=== PATIENT | male | born 1950 | race Caucasian/White ===

== ENCOUNTER 2017-01-18 14:17 | Emergency (ER) | payer MEDICARE, OTHER ==
[~2017-01-18] VITALS: Ht 175.3 cm; Wt 86.2 kg
[2017-01-18 14:27] VITALS: BP 121/71
[2017-01-18] MEDS ORDERED: TDAP [DIPH/PERTUSSIS/TET] 0.5 ML VIAL IM ONE ×2 (14:47→15:00)
== END 2017-01-18 14:59 | disposition home or self-care (01) ==
LOC: ER 14:22
DX: S61.211A Laceration without foreign body of left index finger without damage to nail, initial encounter (principal); S61.217A Laceration without foreign body of left little finger without damage to nail, initial encounter; W26.0XXA Contact with knife, initial encounter; Y93.89 Activity, other specified; Y92.000 Kitchen of unspecified non-institutional (private) residence as the place of occurrence of the external cause; Y99.9 Unspecified external cause status
CPT/HCPCS: 90471; 90715; 99283; A4606; Z7610